=== PATIENT | male | born 1935 | race Caucasian/White ===

== ENCOUNTER 2016-09-26 23:04 | Inpatient (IN) | payer MEDICARE, BC ==
--- NOTE | ~2016-09-26 | HP ---
History And Physical [id number] [place]. [address] NAME: PATTIE DAMICO : 37 STATUS : ADM Leighann PAT#: [id number] AGE: 81 ADM/REG DATE : 09/26/16 MR#: [id number] REPORT SERV DATE: 09/27/16 DICTATED BY: MAGGIE GRANADOS DATE: 09/27/16 REPORT STATUS : Draft TRANSCRIBED BY: MODCar DATE: 09/27/16 DATE OF ADMISSION: 09/26/2016 PRIMARY SPECIAL AGENT IN CHARGE: Dr. Bandar Norman. CHIEF COMPLAINT: Chest pain. HISTORY OF PRESENT ILLNESS: This is a very pleasant 81-year-old male with a history of coronary artery disease, status post CABG in 2011 as well as mitral valve repair, who developed left-sided chest pain around 7 o'clock yesterday morning. He describes it as 7/10 in intensity, and he thought at first it was "heartburn." When it did not ease, he took two nitroglycerin without any effect. The chest pain seemed to last all day and he mentioned it to his sometime that evening. She urged him to come to the emergency department. He arrived around 9:30 p.m. last evening and was given three nitroglycerin five minutes apart, which decreased his pain to 2/10 in intensity. He states some IV morphine given in the chest pain observation unit last night finally relieved the pain, but it still will hurt "when I press on it." It also has a pleuritic component. He was not doing anything exertional when the chest pain occurred and he has had no other recent episodes of chest pain. The patient actually did not have any chest pain surrounding his OR and coronary artery disease with bypass in 2011 according to him. The patient's most recent hospitalization was in January of last year for a GI bleed secondary to gastric ulcers. He has been doing fairly well since then and was last seen by Dr. Norman in the office on 07/30. No recent fever, cough, or chills. Denies orthopnea, PND, or lower extremity edema. MEDICAL HISTORY: 1. Coronary artery disease with history of CABG in 2011 as well as mitral valve repair. History of ischemic cardiomyopathy with an EF of 30%-35%, improved to 50% on echocardiogram in 2013. 2. History of alcohol abuse, but has not had any alcohol in four years. 3. Hypertension. 4. Hyperlipidemia. 5. Postoperative paroxysmal atrial fibrillation. 6. Postoperative CVA. 7. GI bleed with hospitalization secondary to gastric ulcers. 8. Hypothyroidism. 9. GERD. SURGICAL HISTORY: 1. Gastric bypass surgery. 2. Right eye RK surgery. 3. Partial colectomy. HOME MEDICATIONS: Tylenol 325 p.r.n. pain, vitamin C 500 daily, Coreg 12.5 b.i.d., vitamin D3 5000 units daily, coenzyme Q10 200 daily, vitamin B12 1000 mcg daily, Unisom 1 gel p.o. History And Physical [address] [address] NAME: PATTIE DAMICO : 37 STATUS : ADM Leighann PAT#: [id number] AGE: 81 ADM/REG DATE : 09/26/16 MR#: [id number] REPORT SERV DATE: 09/27/16 DICTATED BY: MAGGIE GRANADOS DATE: 09/27/16 REPORT STATUS : Draft TRANSCRIBED BY: SATHYA DATE: 09/27/16 daily, folic acid 1 mg daily, levothyroxine 100 mcg daily, Claritin 10 mg with pseudoephedrine tab b.i.d., magnesium 1250 mg daily, multivitamin daily, Prilosec 20 daily, pravastatin 40 at bedtime, vitamin B6 tab 100 daily, Aldactone 25 daily, Carafate 1 g p.o. b.i.d. Multiple dhok-oeb-ivvisye supplements including thiamin, Super Beta Prostate, antidiarrheal agent , Beta-Sitosterol, Hemoplex, vitamin Super K, and D- Ribose. Flomax 0.4 mg daily and Ecotrin 81 mg daily. ALLERGIES: NO KNOWN DRUG ALLERGIES. SOCIAL HISTORY: The patient is . He is retired from the insurance industry. Denies history of smoking. No alcohol in four years, former abuse. No illicit drug use. FAMILY HISTORY: Not reviewed. REVIEW OF SYSTEMS: Negative except as indicated above. PHYSICAL EXAMINATION: VITAL SIGNS: Blood pressure 156/72, heart rate 65, temperature 98.4, pulse oximetry 96% on room air. BMI 27.6. GENERAL: Well developed, well nourished, in no acute distress HEENT: Anicteric. Normal EOM. Head normocephalic. PERRLA, no xanthelasma. NECK: Supple. No JVD. Carotids normal without bruits. LUNGS: Clear to auscultation bilaterally anterior and posterior. Respirations even and unlabored. CARDIAC: S1, S2. Regular rate and rhythm. No murmurs, rubs, or gallops appreciate. PMI nondisplaced. There is some tenderness to palpation over the left chest wall and under the left breast. ABDOMEN: Normal bowel sounds. Soft and nontender to palpation. No masses or organomegaly. EXTREMITIES: No peripheral edema. DP/PT and radial pulses palpable bilaterally. No clubbing or cyanosis. SKIN: Warm and dry. Normal turgor. No pallor or cyanosis. MUSCULOSKELETAL: Moving all extremities x4. Normal muscle strength. NEURO/PSYCH: Alert and oriented with appropriate affect. LABORATORY DATA: White blood count 9.5, hemoglobin 13.0, hematocrit 38.8. Sodium 138, potassium 4.8, BUN 29, creatinine 1.3. Troponin less than 0.[address] without contrast done in the emergency department for headache, although this was not mentioned to me by the patient. No acute intracranial pathology. Evidence of left frontal lobe CVA as well as moderate advanced diffuse cerebral involutional changes and mild deep white matter chronic microvascular ischemic changes. CTA of the chest with no evidence of PE. Cardiomegaly, status post CABG and mitral valve replacement. Indeterminate age insufficiency fracture to T5. No active pulmonary disease. Chest x-ray showed some small bibasilar atelectatic changes. EKG is interpreted by myself indicates sinus rhythm with first-degree AV block, and T-wave inversions to the anterior lateral V leads. These are also seen on the historic EKGs. History And Physical [address] [address] NAME: PATTIE DAMICO : 37 STATUS : ADM Leighann PAT#: [id number] AGE: 81 ADM/REG DATE : 09/26/16 MR#: [id number] REPORT SERV DATE: 09/27/16 DICTATED BY: MAGGIE GRANADOS DATE: 09/27/16 REPORT STATUS : Draft TRANSCRIBED BY: MODCar DATE: 09/27/16 ASSESSMENT AND PLAN: 1. Atypical chest pain with some pleuritic component in this 81-year-old male with history of coronary artery disease and bypass surgery. He has been observed overnight in the Chest Pain Observation Unit and is negative for acute coronary syndrome. CTA of the chest was also negative for PE. I was going to consider discharging the patient home with outpatient nuclear stress test, but the patient then had recurrence of his chest pain this morning requiring some IV morphine. We will plan to keep him in our observation unit over this holiday weekend with stress testing planned on Wednesday, 09/29. 2. Coronary artery disease with history of CABG in 2011. The patient is currently on aspirin, beta rafa, and statin therapy. We will continue. 3. Hypertension. Blood pressure controlled. 4. Mixed hyperlipidemia, on statin therapy. DBT/MODL Maggie Granados NP / [id number] CC: Lyric Pal, MSN, INFORMATION OFFICER-BC Emerson Catalan M.D. Bandar Norman M.D.
[2016-09-26 22:52] LABS: ALBUMIN 3.7 G/DL (3.5-5.0); ALKALINE PHOSPHATASE 57 U/L (45-117); SGOT(AST) 16 U/L (5-40); SGPT(ALT) 31 U/L (5-65); TOTAL BILIRUBIN 0.3 MG/DL (0-1.2); TOTAL PROTEIN 6.9 G/DL (6.0-8.5)
[2016-09-26 22:53] LABS: DIRECT BILIRUBIN < 0.1 MG/DL (0.0-0.4); INDIRECT BILIRUBIN(NOT ORDER) 0.2 MG/DL (0.1-0.9)
[~2016-09-26 23:04] MED LIST: ACCUNEB INH; ADVAIR115P INH; ADVAIR250 INH; AMIT25 PO; AMITRIPTYLIN150 MG PO; ANTABUSE250 MG OR; ASAB PO; B-COMPLEX PO; B1100 PO; B12100T PO; B150 PO; BACDS PO; BANOPHEN25 MG PO; BENTYL10 PO; BENTYL20 PO; BETA SITOSTEROL PO; CENTRUM TAB1 TAB PO; CIP5 PO; CITRUCEL OR; CLARIT10 PO; CLARITIN D PO; CO Q-10200 MG PO; COENZYME PO; COENZYME Q10 PO; COQ-10200 MG PO; COQ10100 MG OR; CORDARONE PO; COREG12 PO; COREG25 PO; CRESTOR10 PO; CULTURELLE PO; CYANOCOBALAMIN PO; D 5000 PO; DEPAK250ER PO; DEPAKOT250 PO; DEPAKOT500 PO; DEPAKOTEER PO; DOAN'S RS325 MG PO; EXCEDRIN PO; FERROUS SULF325 M1 PO; FLONASE NAS; FOLIC PO; HALF81 PO; HEMA-PLEX PO; HYDROCHLOROTHYAZIDE PO; IMOD PO; IRON PO; KDUR20 PO; L20 PO; LEVAQUIN750 MG PO; LEVOTHYROXIN100 MCG PO; LIOR10 PO; LORT7 PO; LORTAB 5 PO; LOSARTAN POTASSIUM PO; MAGNESIUM MALATE PO; MAGNESIUM PO; MAGNESIUM SALICYLATE PO; MEPHYTON 5 MG TA5 MG PO; MOMUD PO; MUCINEX PO; MULTIVIT/MIN PO; NATURA2 OP; NORCO1 TA2 PO; PHYTONADIONE PO; PLAVIX PO; PRAVACHOL40 MG PO; PREV15 PO; PRILO PO; PRIN10 PO; PROTONIX PO; SELENIUM SULFIDE; SPIRO25 PO; SUCR PO; SUPER B-100 PO; SUPER K PO; SYN1 PO; Sudafed PO; T PO; TRAZ50 PO; TRIAMCINOLONE NS; ULTRAM50 PO; UNISOM PO; UNISOM25 MG PO; V120 PO; VENTOLIN HFA INH; VITAMIN B-1 100MG PO; VITAMIN B-121000 MC1 PO; VITAMIN B-6 PO; VITAMIN B-625 MG PO; VITAMIN D1000 UNI1 PO; VITAMIN D3 PO; VITAMIN D31000 UNIT PO; VITAMIN K PO; ZITH250 PO; ZOFRAN2ML IM; [UNRECOGNIZED DRUG - OTHER]; [UNRECOGNIZED DRUG - OTHER] PO; [UNRECOGNIZED DRUG - OTHER] PO; [UNRECOGNIZED DRUG - OTHER] PO; [UNRECOGNIZED DRUG - OTHER] PO; [UNRECOGNIZED DRUG - OTHER] PO; [UNRECOGNIZED DRUG - OTHER] PO; [UNRECOGNIZED DRUG - OTHER] PO; [UNRECOGNIZED DRUG - OTHER] PO; [UNRECOGNIZED DRUG - OTHER] PO; [UNRECOGNIZED DRUG - OTHER] PO; [UNRECOGNIZED DRUG - OTHER] PO; [UNRECOGNIZED DRUG - OTHER] PO; [UNRECOGNIZED DRUG - REMARK] PO
[2016-09-27] MEDS ORDERED: SUCR PO (00:10)
[2016-09-27] MEDS ORDERED: COREG12 PO (00:10)
[2016-09-27] MEDS ORDERED: LEVOTHYROXIN100 MCG PO (00:11)
[2016-09-27] MEDS ORDERED: PRILO PO (00:12)
[2016-09-27] MEDS ORDERED: FOLIC PO (00:13)
[2016-09-27] MEDS ORDERED: SPIRO25 PO (00:13)
[2016-09-27] MEDS ORDERED: PRAVACHOL40 MG PO (00:14)
[2016-09-27] MEDS ORDERED: CLARITD24H PO (00:14)
[2016-09-27] MEDS ORDERED: ECOTRIN PO (00:15)
[2016-09-27] MEDS ORDERED: T PO (00:16)
[2016-09-27] MEDS ORDERED: [UNRECOGNIZED DRUG - OTHER] PO (00:16)
[2016-09-27] MEDS ORDERED: [UNRECOGNIZED DRUG - OTHER] PO (00:17)
[2016-09-27] MEDS ORDERED: [UNRECOGNIZED DRUG - OTHER] PO (00:18)
[2016-09-27] MEDS ORDERED: UNISOM25 MG PO (00:18)
[2016-09-27] MEDS ORDERED: FLOMAX4 PO (00:19)
[2016-09-27] MEDS ORDERED: CURAMIN PO (00:19)
[2016-09-27] MEDS ORDERED: THERGRANM PO (00:20)
[2016-09-27] MEDS ORDERED: BETA SITOSTEROL PO (00:21)
[2016-09-27] MEDS ORDERED: VITC500 PO (00:21)
[2016-09-27] MEDS ORDERED: VITAMIN B-625 MG PO (00:22)
[2016-09-27] MEDS ORDERED: VITAMIN B-121000 MC1 PO (00:22)
[2016-09-27] MEDS ORDERED: HEMA-PLEX PO (00:23)
[2016-09-27] MEDS ORDERED: VITAMIN D31000 UNIT PO (00:24)
[2016-09-27] MEDS ORDERED: MAG-DELAY PO (00:25)
[2016-09-27] MEDS ORDERED: CO Q-10200 MG PO (00:25)
[2016-09-27] MEDS ORDERED: B1100 PO (00:25)
[2016-09-27] MEDS ORDERED: [UNRECOGNIZED DRUG - OTHER] PO (00:26)
[2016-09-27] MEDS ORDERED: D-RIBOSE PO (00:27)
[2016-09-28 04:54] LABS: CALCIUM, SERUM 8.8 MG/DL (8.5-10.4); CHLORIDE, SERUM 108 MMOL/L (96-112); CREATININE 1.15 MG/DL (0.70-1.30); GFR AFRICAN AMERICAN 69 ML/MIN (>=60); GFR NON AFRICAN AMERICAN 60 ML/MIN (>=60); GLUCOSE, SERUM 94 MG/DL (60-99); SODIUM, SERUM 140 MMOL/L (135-148)
[2016-09-28 04:56] LABS: BUN (BLOOD UREA NITROGEN) 21 MG/DL (6-23); CO2 (CARBON DIOXIDE) 30 MMOL/L (24-34)
[2016-09-30 05:05] LABS: BASOPHILS 0.2 %; BASOPHILS ABSOLUTE 0.02 10/3/uL (0.0-0.16); EOSINOPHILS 6.6 %; EOSINOPHILS ABSOLUTE 0.58 10/3/uL (0.0-0.53); IMMATURE GRANULOCYTES 0.1 %; IMMATURE GRANULOCYTES ABSOLUTE 0.01 10/3/uL (0.0-0.11); LYMPHOCYTES 17.1 %; LYMPHOCYTES ABSOLUTE 1.51 10/3/uL (0.67-4.30); MEAN CORPUS HGB CONC 33.9 g/dL (32.0-36.0); MEAN CORPUSCULAR HEMOGLOB 32.3 pg (26.0-34.0); MEAN PLATELET VOLUME 10.3 fL (9.2-13.0); MONOCYTES 8.2 %; MONOCYTES ABSOLUTE 0.72 10/3/uL (0.21-1.20); NEUTROPHILS 67.8 %; NEUTROPHILS ABSOLUTE 5.99 10/3/uL (2.02-8.40); PLATELET COUNT 198 10/3/uL (150-400); RBC DISTRIBUTION WIDTH 14.1 % (12.0-16.0); WHITE BLOOD CELLS 8.8 10/3/uL (4.5-10.5)
[2016-09-30 05:07] LABS: HEMATOCRIT 38.6 % (40.0-51.0); HEMOGLOBIN 13.1 g/dL (13.6-17.8); MANUAL DIFF NO %; MEAN CORPUSCULAR VOLUME 95.3 fL (80-100); RED CELL COUNT 4.05 10/6/uL (4.7-6.1)
[2016-09-30 05:24] LABS: BUN (BLOOD UREA NITROGEN) 18 MG/DL (6-23); CALCIUM, SERUM 8.7 MG/DL (8.5-10.4); CHLORIDE, SERUM 105 MMOL/L (96-112); CHOL/HDL RATIO(NOT ORDER) 3.2 (0-5); CHOLESTEROL 100 MG/DL (< 200); CREATININE 1.02 MG/DL (0.70-1.30); GFR AFRICAN AMERICAN 80 ML/MIN (>=60); GFR NON AFRICAN AMERICAN 69 ML/MIN (>=60); GLUCOSE, SERUM 107 MG/DL (60-99); HDL CHOLESTEROL 31 MG/DL (> 39); LDL CHOLESTEROL 53 MG/DL (< 130); NON-HDL CHOLESTEROL 69 MG/DL (< 160); POTASSIUM, SERUM 4.3 MMOL/L (3.5-5.3); SODIUM, SERUM 136 MMOL/L (135-148)
[2016-09-30 05:26] LABS: CO2 (CARBON DIOXIDE) 24 MMOL/L (24-34); TRIGLYCERIDE 80 MG/DL (< 150)
[2016-09-30] MEDS ORDERED: LIPITOR40 PO (17:09)
[2016-09-30] MEDS ORDERED: IMDUR30 PO (17:09)
[2016-09-30] MEDS ORDERED: PLAVIX PO (17:09)
[2016-09-30] MEDS ORDERED: NTG150 SL (17:10)
== END 2016-09-30 21:53 | disposition home or self-care (01) | DRG 247 ==
LOC: ER 23:04 → CDU1 23:31 → CDU2 09-27 00:28 → SSU1 09-30 13:45
PROVIDERS: Clinical Nurse Specialist; Emergency Medicine; Nurse Practitioner
PROC: 027034Z Dilation of Coronary Artery, One Artery with Drug-eluting Intraluminal Device, Percutaneous Approach (ICD-10-PCS; principal; 2016-09-30)
PROC: 4A023N7 Measurement of Cardiac Sampling and Pressure, Left Heart, Percutaneous Approach (ICD-10-PCS; 2016-09-30)
PROC: B2151ZZ Fluoroscopy of Left Heart using Low Osmolar Contrast (ICD-10-PCS; 2016-09-30)
PROC: B2111ZZ Fluoroscopy of Multiple Coronary Arteries using Low Osmolar Contrast (ICD-10-PCS; 2016-09-30)
PROC: B2181ZZ Fluoroscopy of Left Internal Mammary Bypass Graft using Low Osmolar Contrast (ICD-10-PCS; 2016-09-30)
DX: T82.855A Stenosis of coronary artery stent, initial encounter (principal); E87.5 Hyperkalemia; I48.0 Paroxysmal atrial fibrillation; I25.110 Atherosclerotic heart disease of native coronary artery with unstable angina pectoris; I25.5 Ischemic cardiomyopathy; F10.21 Alcohol dependence, in remission; I10 Essential (primary) hypertension; K21.9 Gastro-esophageal reflux disease without esophagitis; E03.9 Hypothyroidism, unspecified; I44.0 Atrioventricular block, first degree; E78.2 Mixed hyperlipidemia; Z95.1 Presence of aortocoronary bypass graft; Z87.11 Personal history of peptic ulcer disease; Z86.73 Personal history of transient ischemic attack (TIA), and cerebral infarction without residual deficits; Z98.890 Other specified postprocedural states; Z98.84 Bariatric surgery status
CPT/HCPCS: 70450; 71020; 71275; 78452; 80048; 80061; 80076; 83690; 83735; 84484; 85025; 85347; 85610; 85730; 93005; 93017; 93459; 99152; 99153; 99285; A9270-GY; A9502; C1725; C1760; C1769; C1874; C1887; C9604; J2250; J3010; Q9967